=== PATIENT | male | born 1960 | race African-American/Black ===

== ENCOUNTER 2017-05-12 06:56 | Outpatient (CLI) | payer MEDICARE | END 2017-05-12 06:57 | disposition home or self-care (01) | LOC: BICULT 06:56 | PROVIDERS: ATTEND Internal Medicine Nephrology | DX: I12.9 Hypertensive chronic kidney disease with stage 1 through stage 4 chronic kidney disease, or unspecified chronic kidney disease (principal); N18.9 Chronic kidney disease, unspecified; R80.9 Proteinuria, unspecified | CPT/HCPCS: 76700; 76770 ==

== ENCOUNTER 2024-06-27 18:27 | Inpatient (IN) | payer MEDICARE, OTHER ==
[2024-06-27] MEDS ORDERED: Acetaminophen 500 MG TAB ONE (19:28)
[2024-06-27] MEDS ORDERED: Labetalol HCl 100 MG/20 ML VIAL ONE (19:28)
[2024-06-27] MEDS ORDERED: niCARdipine 25 MG/10 ML SDV ONE (19:49)
[2024-06-28] MEDS ORDERED: Ipratropium/Albuterol 3 ML NEB NEB PRN (00:15)
[2024-06-28] MEDS ORDERED: Morphine 4 MG/ML VIAL SLOW IVP PRN (00:15)
[2024-06-28] MEDS ORDERED: Ondansetron PF 4 MG/2 ML Vial IVP PRN (00:15)
[2024-06-28] MEDS ORDERED: HYDROcodone/Acetaminophen 7.5/325 mg Tablet PO PRN (00:29)
[2024-06-28] MEDS ORDERED: niCARdipine 25 MG/10 ML SDV ONE (00:40)
[2024-06-28] MEDS: Acetaminophen 325 MG TAB PO PRN (02:30)
[2024-06-28 03:32] VITALS: BMI 46.4
[2024-06-28] MEDS: Lorazepam 1 MG TAB PO PRN (03:50)
[2024-06-28] MEDS: Lorazepam 1 MG TAB ONE (05:14)
[2024-06-28] MEDS: niCARdipine 25 MG/10 ML SDV ONE (05:20)
[2024-06-28 05:25] LABS: #Basophils 0.04 10x3/uL (0.0-0.2); %Basophils 0.3 % (0.0-1.0); %Eosinophils 0.4 % (0.0-10.0); %Monocytes 9.3 % (0.0-10.0); %Neutrophils 65.6 % (42.0-75.0); Hematocrit 36.2 % (42.0-52.0); Hemoglobin 12.2 g/dL (14.0-18.0); Mean Corpuscular HGB CONC 33.7 g/dL (32.0-36.0); Mean Corpuscular Hemoglobin 29.2 pg (27.0-31.0); Mean Corpuscular Volume 86.6 fL (78.0-98.0); Mean Platelet Volume 11.3 fL (7.4-10.4); Platelet Count 278 10x3/uL (130-400); RBC Distribution Width 14.4 % (11.5-14.5); Red Blood Cell (RBC) Count 4.18 mill/uL (4.70-6.10)
[2024-06-28 05:36] LABS: Anion Gap 12 mmol/L (10-20); BUN (Urea Nitrogen) 18 mg/dL (8.4-25.7); Calc. Creatinine Clearance 116 mL/min (70-130); Calcium 8.5 mg/dL (7.8-10.44); Carbon Dioxide 21 mmol/L (23-31); Chloride 111 mmol/L (98-107); Estimated GFR 58; Glucose 109 mg/dL (80-115); Potassium 3.3 mmol/L (3.5-5.1); Sodium 141 mmol/L (136-145)
[2024-06-28] MEDS ORDERED: Electrolyte Replacement Protocol FS PRN (06:15)
[2024-06-28] MEDS: FLUoxetine HCl 20 MG CAP PO SCH (07:58)
[2024-06-28] MEDS: Potassium Chloride 20 MEQ TAB PO SCH ×2 (07:59→09:06)
[2024-06-28] MEDS: Losartan 25 MG TAB PO SCH ×2 (07:59→13:30)
[2024-06-28] MEDS: niCARdipine 25 MG in Sodium Chloride 0.9% 250 ML 250 ML IVPB SCH (08:17)
[2024-06-28] MEDS: NIFEdipine XL 30 MG ER.TAB PO SCH (08:36)
[2024-06-28] MEDS: Pantoprazole 40 MG DR.TAB PO SCH (08:36)
[2024-06-28] MEDS: Lactated Ringer's 1,000 ML IV SCH (08:51)
[2024-06-28] MEDS: Electrolyte Replacement Protocol 1 EACH FS ONE (09:06)
[2024-06-28] MEDS: cloNIDine 0.2 MG TAB PO SCH (09:48)
[2024-06-28] MEDS: FLU (Fluarix Triv) TS24-25(6MOS UP)/PF 45 MCG/0.5 ML Syringe IM ONE (09:50)
[2024-06-28 11:22] LABS: Potassium 3.6 mmol/L (3.5-5.1)
[2024-06-28] MEDS: hydrALAZINE 20 MG/ML VIAL SLOW IVP PRN (13:36)
[2024-06-28] MEDS: Levothyroxine Sodium 88 MCG TAB PO SCH (13:59)
[2024-06-28] MEDS: cloNIDine 0.1 MG TAB PO SCH (20:39)
[2024-06-29] MEDS: Levothyroxine Sodium 88 MCG TAB PO SCH (06:12)
[2024-06-29] MEDS: Labetalol HCl 100 MG/20 ML VIAL SLOW IVP PRN (06:13)
[2024-06-29] MEDS: Lorazepam 1 MG TAB PO SCH (08:45)
[2024-06-29] MEDS: Furosemide 40 MG TAB PO SCH (08:45)
[2024-06-29] MEDS: Losartan 25 MG TAB PO SCH (08:46)
[2024-06-29] MEDS ORDERED: cloNIDine 0.1 MG TAB PO SCH (09:45)
[2024-06-29 10:02] LABS: #Basophils 0.05 10x3/uL (0.0-0.2); %Basophils 0.4 % (0.0-1.0); %Eosinophils 0.8 % (0.0-10.0); %Lymphocytes 19.9 % (21.0-51.0); %Neutrophils 71.5 % (42.0-75.0); Hematocrit 37.4 % (42.0-52.0); Hemoglobin 12.5 g/dL (14.0-18.0); Mean Corpuscular HGB CONC 33.4 g/dL (32.0-36.0); Mean Corpuscular Hemoglobin 29.6 pg (27.0-31.0); Mean Corpuscular Volume 88.4 fL (78.0-98.0); Mean Platelet Volume 10.6 fL (7.4-10.4); Platelet Count 284 10x3/uL (130-400); RBC Distribution Width 14.6 % (11.5-14.5); Red Blood Cell (RBC) Count 4.23 mill/uL (4.70-6.10)
[2024-06-29 10:30] LABS: Anion Gap 15 mmol/L (10-20); BUN (Urea Nitrogen) 14 mg/dL (8.4-25.7); Calc. Creatinine Clearance 136 mL/min (70-130); Carbon Dioxide 19 mmol/L (23-31); Chloride 110 mmol/L (98-107); Estimated GFR 69; Glucose 111 mg/dL (80-115); Potassium 3.8 mmol/L (3.5-5.1); Sodium 140 mmol/L (136-145)
[2024-06-29] MEDS: FLUoxetine HCl 20 MG CAP PO SCH (10:53)
[2024-06-29] MEDS: Carvedilol 6.25 MG TAB PO SCH ×2 (10:53→16:43)
[2024-06-29] MEDS: hydrALAZINE 25 MG TAB PO SCH ×2 (15:45→20:56)
[2024-06-29] MEDS: cloNIDine 0.1 MG TAB PO SCH (15:46)
[2024-06-29] MEDS: cloNIDine 0.2 MG TAB PO SCH (20:55)
[2024-06-30 06:16] VITALS: TEMP 97.9
[2024-06-30] MEDS ORDERED: FLUoxetine HCl 20 MG CAP PO SCH (09:00)
[2024-06-30] MEDS: Enoxaparin 40 MG (0.4 mL) SYRINGE SC SCH (09:01)
[2024-06-30 09:06] VITALS: BP 147/93
[2024-06-30] MEDS: Carvedilol 25 MG TAB PO SCH (09:40)
[2024-06-30] MEDS ORDERED: Carvedilol 25 MG TAB PO SCH (17:00)
== END 2024-06-30 12:07 | disposition home or self-care (01) | DRG 86 ==
LOC: ERS 18:27 → EEVIPCON 18:27 → CCU 23:35 → UNDOADMIN 23:35 → SURG A 06-29 05:39
PROVIDERS: ADMIT Surgery; ATTEND Surgery
DX: S06.5X0A Traumatic subdural hemorrhage without loss of consciousness, initial encounter (principal); Z68.42 Body mass index [BMI] 45.0-49.9, adult; E03.9 Hypothyroidism, unspecified; I12.9 Hypertensive chronic kidney disease with stage 1 through stage 4 chronic kidney disease, or unspecified chronic kidney disease; F41.9 Anxiety disorder, unspecified; F31.9 Bipolar disorder, unspecified; Y09 Assault by unspecified means; S00.03XA Contusion of scalp, initial encounter; I16.0 Hypertensive urgency; N18.30 Chronic kidney disease, stage 3 unspecified; S02.2XXA Fracture of nasal bones, initial encounter for closed fracture; E87.6 Hypokalemia; R40.2363 Coma scale, best motor response, obeys commands, at hospital admission; R40.2143 Coma scale, eyes open, spontaneous, at hospital admission; R40.2253 Coma scale, best verbal response, oriented, at hospital admission; F43.10 Post-traumatic stress disorder, unspecified; G47.33 Obstructive sleep apnea (adult) (pediatric); S06.6X0A Traumatic subarachnoid hemorrhage without loss of consciousness, initial encounter; Z88.5 Allergy status to narcotic agent; Z79.890 Hormone replacement therapy; Z79.899 Other long term (current) drug therapy; E66.01 Morbid (severe) obesity due to excess calories
CPT/HCPCS: 36415; 70450; 80048; 85025; 96374; 96375; G0390; J0360; J1650; J7050